=== PATIENT | male | born 1985 | race Caucasian/White ===

== ENCOUNTER 2019-05-25 20:06 | Emergency (ER) | payer BC ==
[~2019-05-25] VITALS: Ht 177.8 cm; Wt 109.3 kg
[2019-05-25 20:25] VITALS: BP 140/87
--- NOTE | 2019-05-25 20:25 | NUR ---
TO [facility]IR [facility]
--- NOTE | 2019-05-25 20:45 | NUR ---
PATIENT SEEN AND CLEARED FOR DC BY DR. FORD.
--- NOTE | 2019-05-25 20:50 | NUR ---
Patient discharged with v/s stable. Written and verbal after care instructions given and explained. Patient verbalized understanding. Ambulatory with steady gait. All questions addressed prior to discharge. Advised to follow up with PMD.
== END 2019-05-25 20:50 | disposition home or self-care (01) ==
LOC: MED 20:06
DX: Z11.9 Encounter for screening for infectious and parasitic diseases, unspecified (principal)
CPT/HCPCS: 87804; 99283

== ENCOUNTER 2021-01-06 01:39 | Emergency (ER) | payer BC, MEDICAID ==
[~2021-01-06] VITALS: Ht 177.8 cm; Wt 102.1 kg
[2021-01-06 01:42] VITALS: BP 126/81
--- NOTE | 2021-01-06 01:45 | NUR ---
TO LOBBY A/W BED AMBULATORY
--- NOTE | 2021-01-06 03:05 | NUR ---
SEEN AMD EXAMINED BY ERMD
[2021-01-06] MEDS ORDERED: predniSONE 20 MG TAB PO ONE (03:10)
--- NOTE | 2021-01-06 03:10 | NUR ---
MEDICATED PER [facility] ORDER, TOLERATED WELL
[2021-01-06] MEDS ORDERED: PRED20TA5 PO (03:38)
[2021-01-06] MEDS ORDERED: DICL100G5 TP (03:38)
[2021-01-06 03:55] VITALS: BP 126/81
--- NOTE | 2021-01-06 03:55 | NUR ---
Patient discharged with v/s stable. Written and verbal after care instructions given and explained. Patient alert, oriented and verbalized understanding of instructions. Ambulatory with steady gait. All questions addressed prior to discharge. ID band removed. Patient advised to follow up with PMD. Rx of DELTASONE given. Patient educated on indication of medication including possible reaction and side effects. Opportunity to ask questions provided and answered.
== END 2021-01-06 03:55 | disposition home or self-care (01) ==
LOC: MED 01:39
DX: L89.899 Pressure ulcer of other site, unspecified stage (principal); M79.671 Pain in right foot; Z79.899 Other long term (current) drug therapy; Z79.1 Long term (current) use of non-steroidal anti-inflammatories (NSAID)
CPT/HCPCS: 73630; 99283; J7512

== ENCOUNTER 2022-03-31 23:46 | Emergency (ER) | payer MEDICAID, OTHER ==
[~2022-03-31] VITALS: Ht 177.8 cm; Wt 108.9 kg
[~2022-03-31 23:46] MED LIST: DICL100G5 TP; PRED20TA5 PO
[2022-03-31 23:50] VITALS: BP 146/86
--- NOTE | 2022-03-31 23:50 | NUR ---
to bed ambulatory
--- NOTE | 2022-04-01 00:07 | NUR ---
PATIENT PLACED ON MONITOR
--- NOTE | 2022-04-01 00:09 | NUR ---
PT BIBS FROM HOME WITH C/O OF CHEST PAIN 07/23 THAT RAD DOWN LEFT ARM AND LEFT SIDE OF NECK SINCE . PATIENT STATES HE HAS BOUTS OF DIZZINESS. PATIENT DENIES SOB, N/V/D. PATIENT DENIES PAST MEDICAL HISTORY. A/O X4 WITH STEADY GAIT.
--- NOTE | 2022-04-01 00:13 | NUR ---
EKG DONE, NORMAL SINUS RHYTHM.
--- NOTE | 2022-04-01 00:21 | NUR ---
Dr. Flowers examining patient.
[2022-04-01] MEDS ORDERED: lisinopriL 20 MG TAB PO ONE (00:25)
[2022-04-01] MEDS ORDERED: NITROGLYCERIN 2% 1 GM PKT TP ONE (00:25)
[2022-04-01] MEDS ORDERED: ASPIRIN 325 MG TAB PO ONE (00:25)
[2022-04-01 00:38] LABS: BASOPHILS # (AUTO) 0.1 K/uL (0.00-0.22); BASOPHILS % (AUTO) 0.6 % (0.0-2.0); EOSINOPHILS # (AUTO) 0.2 K/uL (0-0.4); EOSINOPHILS % (AUTO) 1.7 % (0.0-4.0); HEMATOCRIT 44.4 % (36-52); HEMOGLOBIN 15.3 g/dL (12.0-18.0); LYMPHOCYTES # (AUTO) 3.8 K/uL (2.0-11.5); MEAN CORPUSCULAR HEMOGLOBIN 29 pg (27-31); MEAN CORPUSCULAR HGB CONC 34 g/dL (33-37); MEAN CORPUSCULAR VOLUME 85.5 fL (80-94); MONOCYTES # (AUTO) 0.8 K/uL (0.8-1.0); MONOCYTES % (AUTO) 7.3 % (1.7-9.3); NEUTROPHILS % (AUTO) 55.4 % (42.2-75.2); PLATELET COUNT (AUTO) 318 K/uL (140-450); RED CELL DISTRIBUTION WIDTH 13.4 % (11.6-13.7); WHITE BLOOD COUNT (AUTO) 10.7 K/uL (4.8-10.8)
[2022-04-01 01:03] LABS: ALBUMIN 4.3 g/dL (3.4-5.0); ANION GAP 13.7 (8-16); CARBON DIOXIDE 27.2 mmol/L (21-32); CREATININE 1.1 mg/dL (0.6-1.3); POTASSIUM 3.9 mmol/L (3.5-5.1); TOTAL BILIRUBIN 0.3 mg/dL (0.0-1.0)
[2022-04-01] MEDS ORDERED: HYDR-2853 PO (02:18)
[2022-04-01 02:20] VITALS: BP 120/68
== END 2022-04-01 02:20 | disposition home or self-care (01) ==
LOC: MED 23:46
DX: R07.9 Chest pain, unspecified (principal); I10 Essential (primary) hypertension; Z79.899 Other long term (current) drug therapy
CPT/HCPCS: 36415; 71045; 80053; 83880; 84484; 85025; 99285